=== PATIENT | male | born 1955 | race African-American/Black ===

== ENCOUNTER 2017-09-08 05:57 | Emergency (ER) | payer OTHER, MEDICAID ==
[~2017-09-08] VITALS: Ht 175.3 cm; Wt 90.7 kg
[~2017-09-08 05:57] MED LIST: COREG; KCL; LASIX; LIPITOR
[2017-09-08 06:04] VITALS: BP_SYST 105
[2017-09-08] MEDS ORDERED: LIDOCAINE 1% 10 MG/ML, 20 ML MDV INJ ONE (06:15)
[2017-09-08] MEDS ORDERED: DIPH-TET-PERTUS Vaccine 0.5 ML VIAL (ADACEL) I.M. ONE (06:15)
[2017-09-08] MEDS ORDERED: IBUPROFEN 800 MG TABLET PO ONE (06:45)
[2017-09-08 07:08] VITALS: BP_SYST 114
== END 2017-09-08 07:08 | disposition home or self-care (01) ==
LOC: SED 05:57
DX: S61.412A Laceration without foreign body of left hand, initial encounter (principal); E78.00 Pure hypercholesterolemia, unspecified; I10 Essential (primary) hypertension; Z86.73 Personal history of transient ischemic attack (TIA), and cerebral infarction without residual deficits; Z79.899 Other long term (current) drug therapy; W25.XXXA Contact with sharp glass, initial encounter; Y93.89 Activity, other specified; Y92.89 Other specified places as the place of occurrence of the external cause; Y99.8 Other external cause status
CPT/HCPCS: 90715; 99283

== ENCOUNTER 2017-09-15 06:12 | Emergency (ER) | payer OTHER, MEDICAID ==
[~2017-09-15] VITALS: Ht 175.3 cm; Wt 91.6 kg
[2017-09-15 06:12] VITALS: BP_SYST 129
[2017-09-15 06:51] VITALS: BP_SYST 131
== END 2017-09-15 06:51 | disposition home or self-care (01) ==
LOC: SED 06:12
DX: S61.213D Laceration without foreign body of left middle finger without damage to nail, subsequent encounter (principal); S61.211D Laceration without foreign body of left index finger without damage to nail, subsequent encounter; E78.00 Pure hypercholesterolemia, unspecified; I10 Essential (primary) hypertension; Z86.73 Personal history of transient ischemic attack (TIA), and cerebral infarction without residual deficits; Z79.899 Other long term (current) drug therapy; W45.8XXD Other foreign body or object entering through skin, subsequent encounter
CPT/HCPCS: 99281

== ENCOUNTER 2018-06-09 11:17 | Emergency (ER) | payer OTHER, MEDICAID ==
[~2018-06-09] VITALS: Ht 175.3 cm; Wt 81.2 kg
[2018-06-09 11:21] VITALS: BP_SYST 136
--- NOTE | 2018-06-09 11:29 | NUR ---
Patient triaged and placed in waiting room. VSS and patient appears in no acute distress at this time. Accompanied by SELF, awaiting available bed, and MD notified of need for MSE.
--- NOTE | 2018-06-09 13:44 | NUR ---
Patient to ER hallway to for evaluation. Side rails up.
--- NOTE | 2018-06-09 13:45 | NUR ---
ER ILEANA Vazquez at bedside examining patient.
--- NOTE | 2018-06-09 14:00 | NUR ---
Pt AAOx4 presents to ED via wheelchair c/o pain to R medial ankle x 3 days. Swelling and erythema noted to site. No active bleeding/discharge present. Pt denies trauma, but states he recently washed his tennis shoes and noticed they were a "little tighter than usual." No other injuries/complaints per pt/noted. Will continue to monitor.
--- NOTE | 2018-06-09 14:44 | NUR ---
Pt states he is impatient and has not had anything to eat today. Pt given apple juice per request.
[2018-06-09 15:02] VITALS: BP_SYST 134
--- NOTE | 2018-06-09 15:02 | NUR ---
Patient given written and verbal discharge instructions and verbalizes understanding. ER [employer]ATOR Karla discussed with patient the results and treatment provided. Patient in stable condition. ID arm band removed. Rx of Naproxen, Prednisone, Colchicine given. Patient educated on pain management and to follow up with PMD. Pain Scale 0. Opportunity for questions provided and answered. Medication side effect fact sheet provided.
== END 2018-06-09 15:02 | disposition home or self-care (01) ==
LOC: SED 11:17
DX: M10.9 Gout, unspecified (principal); I10 Essential (primary) hypertension; E78.00 Pure hypercholesterolemia, unspecified; Z79.899 Other long term (current) drug therapy
CPT/HCPCS: 36415; 84550-TC; 99284

== ENCOUNTER 2019-02-16 10:28 | Emergency (ER) | payer OTHER, MEDICAID ==
[~2019-02-16] VITALS: Ht 175.3 cm; Wt 89.8 kg
[2019-02-16 10:34] VITALS: BP_SYST 137
[2019-02-16] MEDS ORDERED: IBUPROFEN 600 MG TABLET PO ONE (11:00)
[2019-02-16 11:12] VITALS: BP_SYST 136
== END 2019-02-16 11:12 | disposition home or self-care (01) ==
LOC: SED 10:28
DX: S29.012A Strain of muscle and tendon of back wall of thorax, initial encounter (principal); I10 Essential (primary) hypertension; E78.00 Pure hypercholesterolemia, unspecified; X50.9XXA Other and unspecified overexertion or strenuous movements or postures, initial encounter; Y93.89 Activity, other specified; Y92.89 Other specified places as the place of occurrence of the external cause; Y99.8 Other external cause status
CPT/HCPCS: 99282

== ENCOUNTER 2020-08-18 12:43 | Emergency (ER) | payer OTHER, MEDICAID ==
[~2020-08-18] VITALS: Ht 180.3 cm; Wt 88.0 kg
[2020-08-18 13:01] VITALS: BP_SYST 145
[2020-08-18] MEDS ORDERED: PENI250T2 PO (13:18)
[2020-08-18] MEDS ORDERED: HYDR-3917 PO (13:18)
[2020-08-18 13:50] VITALS: BP_SYST 145
== END 2020-08-18 13:49 | disposition home or self-care (01) ==
LOC: SED 12:43
DX: S03.2XXA Dislocation of tooth, initial encounter (principal); I10 Essential (primary) hypertension; E78.00 Pure hypercholesterolemia, unspecified; X58.XXXA Exposure to other specified factors, initial encounter; Y93.89 Activity, other specified; Y92.89 Other specified places as the place of occurrence of the external cause; Y99.8 Other external cause status
CPT/HCPCS: 99283